=== PATIENT | female | born 1980 | race Caucasian/White ===

== ENCOUNTER 2018-03-17 14:56 | Emergency (ER) | payer BC, OTHER ==
--- NOTE | 2018-03-17 16:05 | PDOC ---
Rapid Medical Evaluation Chief Complaint: Eye Problem Medical Evaluation: 03/17/18 16:03 I have performed a brief in-person evaluation of this patient. The patient presents with a chief complaint of:swelling and pain to upper right lid Pertinent physical exam findings: swelling to mid right lid I have ordered the following: nothing The patient will proceed to the ED for further evaluation. 03/17/18 16:03 Discharge Disposition - Diagnosis Eye abnormalities - Referrals Referrals: Raghav Rogers MD [Primary Care Provider] - - Patient Instructions - Post Discharge Activity
[2018-03-17 16:11] VITALS: BP 144/81; PULSE 74; TEMP 98.1; BMI 27.1
--- NOTE | 2018-03-17 16:25 | PDOC ---
History of Present Illness - General Chief Complaint: Eye Problem Stated Complaint: Eye Problem Time Seen by Provider: 03/17/18 16:18 - History of Present Illness Initial Comments: 03/17/18 16:21 37-year-old female without comorbidities presents for evaluation of right eye upper lid swelling times one day. No systemic symptoms. No discharge. No changes in vision. No blurry vision. No foreign body sensation. Past History - Past Medical History Home Medications: Ambulatory Orders Erythromycin 0.5% Eye Ointment [Erythromycin 0.5% Eye Ointment -] 1 applic OD BID #1 tube 03/17/18 COPD: No - Suicide/Smoking/Psychosocial Hx Smoking History: Never smoked Have you smoked in the past 12 months: No Information on smoking cessation initiated: No Hx Alcohol Use: No Drug/Substance Use Hx: No Review of Systems - Review of Systems HEENTM: Yes: See HPI, Eye Pain *Physical Exam - Vital Signs Last Vital Signs Temp Pulse Resp BP Pulse Ox 98.1 F 74 18 144/81 100 03/17/18 16:05 03/17/18 16:05 03/17/18 16:05 03/17/18 16:05 03/17/18 16:05 - Physical Exam Comments: 03/17/18 16:21 HEAD: NC/AT EYES: Conjuntiva clear; there is mild swelling and erythema at the right eye lateral aspect of the upper lid NEUROLOGIC: No gross sensory or motor deficits, NVID SKIN: Normal color and temperature no lesions or rashes Moderate Sedation - Procedure Monitoring Vital Signs: Procedure Monitoring Vital Signs Temperature 98.1 F 03/17/18 16:05 Pulse Rate 74 03/17/18 16:05 Respiratory Rate 18 03/17/18 16:05 Blood Pressure 144/81 03/17/18 16:05 O2 Sat by Pulse Oximetry (%) 100 03/17/18 16:05 *DC/Admit/Observation/Transfer Diagnosis at time of Disposition: Eye abnormalities, Sty, external - Discharge Dispostion Disposition: HOME Condition at time of disposition: Stable Decision to Admit order: No - Referrals Referrals: Raghav Rogers MD [Primary Care Provider] - Moe Pickard MD [Staff Physician] - - Patient Instructions Printed Discharge Instructions: Abi, DI for [facility] Additional Instructions: Return to the emergency room should symptoms worsen or go unresolved. Please follow-up with ophthalmology in 2-3 days for further evaluation and treatment options. - Post Discharge Activity
== END 2018-03-17 16:27 | disposition home or self-care (01) ==
LOC: JERFT 14:56
DX: H00.011 Hordeolum externum right upper eyelid (principal)
CPT/HCPCS: 99281-25